=== PATIENT | female | born 1980 | race Caucasian/White ===

== ENCOUNTER 2017-12-24 18:30 | Emergency (ER) | payer MEDICAID ==
[~2017-12-24] VITALS: Ht 160 cm; Wt 49.0 kg
[2017-12-24 18:30] VITALS: BP_SYST 86
[2017-12-24 19:40] VITALS: BP_SYST 90
== END 2017-12-24 19:40 | disposition home or self-care (01) ==
LOC: SED 18:30
DX: R42 Dizziness and giddiness (principal); R11.10 Vomiting, unspecified; F32.9 Major depressive disorder, single episode, unspecified
CPT/HCPCS: 93005; 99283

== ENCOUNTER 2018-02-02 01:25 | Emergency (ER) | payer MEDICAID ==
[~2018-02-02] VITALS: Ht 160 cm; Wt 50.3 kg
[2018-02-02 01:33] VITALS: BP_SYST 143
[2018-02-02] MEDS ORDERED: IBUPROFEN 800 MG TABLET PO ONE (02:15)
[2018-02-02 03:00] VITALS: BP_SYST 123
== END 2018-02-02 03:00 | disposition home or self-care (01) ==
LOC: SED 01:25
DX: J02.8 Acute pharyngitis due to other specified organisms (principal); B34.9 Viral infection, unspecified; F32.9 Major depressive disorder, single episode, unspecified
CPT/HCPCS: 36415; 86403; 87081; 99283

== ENCOUNTER 2019-08-25 19:11 | Emergency (ER) | payer MEDICAID ==
[~2019-08-25] VITALS: Ht 160 cm; Wt 68.0 kg
[2019-08-25 19:18] VITALS: BP_SYST 108
[2019-08-25] MEDS ORDERED: IBUPROFEN 600 MG TABLET PO ONE (21:45)
[2019-08-25 23:21] LABS: BASOPHILS # (AUTO) 0.1 K/uL (0.0-0.2); BASOPHILS % (AUTO) 0.9 % (0.0-2.0); EOSINOPHILS # (AUTO) 0.1 K/uL (0.0-0.4); EOSINOPHILS % (AUTO) 1.1 % (0.0-4.0); HEMATOCRIT 41.1 % (36-48); HEMOGLOBIN 13.8 g/dL (12.0-16.0); LYMPHOCYTES # (AUTO) 1.8 K/uL (1.0-5.5); LYMPHOCYTES % (AUTO) 17.8 % (20.5-51.5); MEAN CORPUSCULAR HEMOGLOBIN 31 pg (27-31); MEAN CORPUSCULAR HGB CONC 34 % (32-36); MEAN CORPUSCULAR VOLUME 93 fL (79.0-98.0); MONOCYTES # (AUTO) 0.4 K/uL (0.0-1.0); MONOCYTES % (AUTO) 4.3 % (1.7-9.3); NEUTROPHILS # (AUTO) 7.5 K/uL (1.8-7.7); NEUTROPHILS % (AUTO) 75.9 % (40.0-70.0); PLATELET COUNT (AUTO) 316 K/uL (130-430); RED BLOOD CELL COUNT(AUTO) 4.44 MIL/uL (4.2-6.2); RED CELL DISTRIBUTION WIDTH 14.6 % (9.0-15.0); WHITE BLOOD COUNT (AUTO) 9.9 K/uL (4.8-10.8)
[2019-08-25 23:31] LABS: PROTHROMBIN TIME 10.1 SECS (9.5-12.5)
[2019-08-25 23:36] LABS: CALCIUM 8.6 mg/dL (8.4-11.0); CREATININE 0.64 mg/dL (0.55-1.30); POTASSIUM 3.6 mmol/L (3.5-5.1)
[2019-08-25 23:46] LABS: ALBUMIN 3.5 g/dL (3.4-4.8); TOTAL BILIRUBIN 0.3 mg/dL (0.0-1.0)
[2019-08-26] MEDS ORDERED: ENOXAPARIN SODIUM 60 MG/0.6 ML SYRINGE SUBCUT ONE (00:15)
[2019-08-26 00:50] VITALS: BP_SYST 111
== END 2019-08-26 00:59 | disposition short-term general hospital (02) ==
LOC: SED 19:11
DX: I82.621 Acute embolism and thrombosis of deep veins of right upper extremity (principal)
CPT/HCPCS: 36415; 80053; 84702; 85025; 85610; 85730; 93971; 96372; 99285; J1650